=== PATIENT | male | born 2000 | race Caucasian/White ===

== ENCOUNTER 2019-03-17 00:20 | Emergency (ER) | payer SELFPAY ==
[~2019-03-17] VITALS: Ht 180.3 cm; Wt 84.1 kg
[2019-03-17 00:21] VITALS: BP 168/83
--- NOTE | 2019-03-17 08:51 | REP ---
Right hand series: Four views. History: Trauma. Pain in the third and fourth digit. Findings: There is mild soft tissue swelling about the PIP and DIP joints of the long finger. On lateral radiograph, there is a tiny bone fragment along the dorsal aspect of the middle phalanx distally just proximal to the DIP joint. This may be a dorsal extensor tendon avulsion injury. The long finger DIP joint is less than completely extended. No other fracture is seen. Impression: Calcific opacity which may be avulsion chip fracture fragment at the dorsal aspect of the DIP joint of the long finger. This should be correlated with area of tenderness to palpation and symptoms. An avulsion fracture involving the extensor tendon of the long finger at the DIP joint cannot be excluded. Electronically Signed by Donnell Carlos MD 03/17/2019 05:48 P
== END 2019-03-17 01:34 | disposition home or self-care (01) ==
LOC: M ED 00:20
DX: S60.221A Contusion of right hand, initial encounter (principal); W22.8XXA Striking against or struck by other objects, initial encounter; Y92.099 Unspecified place in other non-institutional residence as the place of occurrence of the external cause; Y93.89 Activity, other specified; Y99.9 Unspecified external cause status